=== PATIENT | male | born 1975 | race Caucasian/White ===

== ENCOUNTER 2021-08-07 23:20 | Emergency (ER) | payer SELFPAY ==
[2021-08-07 23:27] VITALS: BP 136/75; PULSE 87; RESP 18; TEMP 37.1; O2SAT 100; BMI 27.5
== END 2021-08-08 00:03 | disposition left against medical advice (07) ==
PROVIDERS: Emergency Provider Emergency Medicine
DX: M79.642 Pain in left hand (principal)
CPT/HCPCS: 99281

== ENCOUNTER 2021-08-08 05:05 | Emergency (ER) | payer SELFPAY ==
--- NOTE | 2021-08-08 05:48 | PC.NURSE ---
pt appears to be responding to internal stimuli, is refusing vitals during triage. Hand appears filthy, laceration between index and thumb, no active bleeding. pt requesting a 'butterfly kit to self repair his wound
== END 2021-08-08 06:20 | disposition left against medical advice (07) ==
PROVIDERS: Emergency Provider Emergency Medicine
DX: S69.90XA Unspecified injury of unspecified wrist, hand and finger(s), initial encounter (principal); X58.XXXA Exposure to other specified factors, initial encounter
CPT/HCPCS: 99281